=== PATIENT | male | born 1940 | race Caucasian/White ===

== ENCOUNTER 2018-05-01 07:27 | Outpatient (CLI) | payer MEDICARE | END 2018-05-01 07:28 | disposition home or self-care (01) | LOC: BICMRI 07:27 | PROVIDERS: ATTEND Nurse Practitioner Family | DX: M48.062 Spinal stenosis, lumbar region with neurogenic claudication (principal); M47.896 Other spondylosis, lumbar region; M51.26 Other intervertebral disc displacement, lumbar region | CPT/HCPCS: 72148 ==

== ENCOUNTER 2021-07-07 06:48 | Outpatient (CLI) | payer MEDICARE | END 2021-07-07 06:49 | disposition home or self-care (01) | LOC: BICMRI 06:48 | PROVIDERS: ATTEND Internal Medicine | DX: F89 Unspecified disorder of psychological development (principal) | CPT/HCPCS: 70551 ==

== ENCOUNTER 2023-02-17 14:55 | Outpatient (CLI) | payer MEDICARE | END 2023-02-17 14:56 | disposition home or self-care (01) | LOC: BICRAD 14:55 | PROVIDERS: ATTEND Internal Medicine Cardiovascular Disease | DX: R06.00 Dyspnea, unspecified (principal); R06.02 Shortness of breath | CPT/HCPCS: 71046 ==

== ENCOUNTER 2024-03-15 11:44 | Outpatient (CLI) | payer MEDICARE | END 2024-03-15 11:45 | disposition home or self-care (01) | LOC: BICRAD 11:44 | PROVIDERS: ATTEND Internal Medicine Cardiovascular Disease | DX: R06.02 Shortness of breath (principal) | CPT/HCPCS: 71046 ==

== ENCOUNTER 2024-08-21 09:56 | Day surgery (SDC) | payer MEDICARE ==
[2024-08-20 10:11] VITALS: BMI 37.0
[~2024-08-21 09:56] MED LIST: EPINEPHrine 0.3 MG in Ophthalmic Irrigation Solution 500 ML IRR SCH
[2024-08-21] MEDS ORDERED: fentaNYL 50 mcg/mL 1 mL Vial ONE (11:11)
[2024-08-21] MEDS ORDERED: Lidocaine 1% PF 5 ML VIAL ONE ×2 (11:11→12:02)
[2024-08-21] MEDS ORDERED: PROPOFOL 20 ML ONE (11:11)
[2024-08-21] MEDS ORDERED: Midazolam HCl 2 mg/2 ml Vial ONE (11:11)
[2024-08-21] MEDS ORDERED: Cyclopentolate 1% Opth Drop 2 ML BOT ONE (11:13)
[2024-08-21] MEDS ORDERED: PHENYLephrine 2.5% Ophth Soln 15 ml Bottle ONE (11:13)
[2024-08-21] MEDS ORDERED: Triamcinolone 40 MG/ML VIAL ONE (12:02)
[2024-08-21] MEDS ORDERED: Lidocaine 4% PF 5 ML AMP ONE (12:02)
[2024-08-21] MEDS ORDERED: Ondansetron PF 4 MG/2 ML Vial ONE (12:02)
[2024-08-21] MEDS ORDERED: CEFAZOLIN 1 GM VIAL ONE (12:02)
[2024-08-21] MEDS ORDERED: Bupivacaine 0.75% 10 ML VIAL ONE (12:02)
[2024-08-21] MEDS ORDERED: Maxitrol 0.1% Opth Oint 3.5 GM TUBE ONE (12:02)
== END 2024-08-21 13:55 | disposition home or self-care (01) ==
LOC: SDC 09:56
PROVIDERS: ATTEND Ophthalmology Retina Specialist
PROC: 08T53ZZ Resection of Left Vitreous, Percutaneous Approach (ICD-10-PCS; principal; 2024-08-21)
PROC: 08NF3ZZ Release Left Retina, Percutaneous Approach (ICD-10-PCS; 2024-08-21)
DX: H33.42 Traction detachment of retina, left eye (principal); Z91.040 Latex allergy status; Z88.1 Allergy status to other antibiotic agents; Z91.041 Radiographic dye allergy status; Z79.899 Other long term (current) drug therapy
CPT/HCPCS: 67041; C1814; J0171; J2250; J2405; J2704; J3010; J0690; J3301; J3490

== ENCOUNTER 2025-08-10 16:22 | Inpatient (IN) | payer MEDICARE ==
[~2025-08-10 16:22] MED LIST changes: -EPINEPHrine 0.3 MG in Ophthalmic Irrigation Solution 500 ML IRR SCH; +Iopamidol 370 76% 100 ML VIAL ONE
[2025-08-10 17:45] LABS: #Basophils 0.03 10x3/uL (0.0-0.2); #Eosinophils 0.49 10x3/uL (0.0-0.7); #Monocytes 1.13 10x3/uL (0.11-0.59); #Neutrophils 3.97 10x3/uL (1.40-6.50); %Basophils 0.5 % (0.0-1.0); %Eosinophils 7.6 % (0.0-10.0); %Lymphocytes 12.8 % (21.0-51.0); %Monocytes 17.5 % (0.0-10.0); %Neutrophils 61.4 % (42.0-75.0); Hematocrit 37.5 % (42.0-52.0); Hemoglobin 12.3 g/dL (14.0-18.0); Mean Corpuscular Hemoglobin 29.8 pg (27.0-31.0); Mean Corpuscular Volume 90.8 fL (78.0-98.0); Platelet Count 129 10x3/uL (130-400); Red Blood Cell (RBC) Count 4.13 mill/uL (4.70-6.10); White Blood Cell (WBC) Count 6.46 10x3/uL (4.8-10.8)
[2025-08-10 17:59] LABS: ALT (SGPT) 11 U/L (Less than 45); AST (SGOT) 21 U/L (11-34); Albumin 3.8 g/dL (3.1-4.5); Alkaline Phosphatase 66 U/L (40-110); Anion Gap 13 mmol/L (10-20); BUN (Urea Nitrogen) 20 mg/dL (8.4-25.7); Bilirubin, Total 0.9 mg/dL (0.3-1.2); Calc. Creatinine Clearance 0 mL/min (70-130); Calcium 9.1 mg/dL (7.8-10.44); Carbon Dioxide 28 mmol/L (23-31); Chloride 98 mmol/L (98-107); Globulin 3.1 g/dL (2.4-3.5); Glucose 93 mg/dL (83-110); Potassium 4.1 mmol/L (3.5-5.1); Sodium 135 mmol/L (136-145)
[2025-08-10] MEDS ORDERED: Famotidine/PF 20 mg/2ml Vial ONE (18:35)
[2025-08-10] MEDS ORDERED: diphenhydrAMINE 50 MG/ML VIAL ONE (18:35)
[2025-08-10 20:20] LABS: Bacteria/HPF None Seen HPF (None Seen); CAUTI Indications for Culture Fever or rigors; Glucose, Urine (Dipstick) Normal (Negative); Leukocyte Negative Leu/uL (Negative); Protein, Urine (Dipstick) Negative (Neg-Trace); Specific Gravity, Urine 1.017 (1.002-1.036); WBC/HPF None Seen HPF (0-3)
[2025-08-10 20:23] LABS: Urine Culture Reflex No No
[2025-08-10] MEDS ORDERED: Ondansetron PF 4 MG/2 ML Vial IVP PRN (21:26)
[2025-08-10] MEDS ORDERED: Guaifenesin DM 100-10/5 ML UDCUP PO PRN (21:26)
[2025-08-10 23:56] VITALS: BMI 29.2
[2025-08-11 04:45] LABS: #Basophils Less than 0.03 10x3/uL (0.0-0.2); #Eosinophils Less than 0.03 10x3/uL (0.0-0.7); #Monocytes 0.25 10x3/uL (0.11-0.59); #Neutrophils 3.34 10x3/uL (1.40-6.50); %Basophils 0.2 % (0.0-1.0); %Eosinophils 0.0 % (0.0-10.0); %Lymphocytes 15.2 % (21.0-51.0); %Monocytes 5.9 % (0.0-10.0); %Neutrophils 78.2 % (42.0-75.0); Hematocrit 40.1 % (42.0-52.0); Hemoglobin 12.9 g/dL (14.0-18.0); Mean Corpuscular Hemoglobin 29.0 pg (27.0-31.0); Mean Corpuscular Volume 90.1 fL (78.0-98.0); Platelet Count 156 10x3/uL (130-400); Red Blood Cell (RBC) Count 4.45 mill/uL (4.70-6.10); White Blood Cell (WBC) Count 4.27 10x3/uL (4.8-10.8)
[2025-08-11 05:14] LABS: Anion Gap 14 mmol/L (10-20); BUN (Urea Nitrogen) 18 mg/dL (8.4-25.7); Calc. Creatinine Clearance 96 mL/min (70-130); Calcium 9.3 mg/dL (7.8-10.44); Carbon Dioxide 24 mmol/L (23-31); Chloride 101 mmol/L (98-107); Glucose 128 mg/dL (83-110); Potassium 4.2 mmol/L (3.5-5.1); Sodium 135 mmol/L (136-145)
[2025-08-11] MEDS: Enoxaparin 40 MG (0.4 mL) SYRINGE SC SCH (08:30)
[2025-08-11] MEDS: Pantoprazole 40 MG DR.TAB PO SCH (08:30)
[2025-08-11] MEDS: Gabapentin 400 MG CAP PO SCH ×2 (08:31→20:19)
[2025-08-11] MEDS: Aspirin 81 mg Enteric Coated Tablet PO SCH (08:31)
[2025-08-11] MEDS: Metoprolol Succinate XL 25 MG ER.TAB PO SCH (08:31)
[2025-08-11] MEDS: Dexamethasone 4 MG TAB PO SCH (12:25)
[2025-08-11] MEDS: Azithromycin 250 MG TAB PO SCH (12:25)
[2025-08-11] MEDS: Melatonin 3 MG TAB PO SCH (20:19)
[2025-08-11] MEDS: Finasteride 5 MG TAB PO SCH (20:19)
[2025-08-11] MEDS: Rosuvastatin 20 MG TAB PO SCH (20:19)
[2025-08-11] MEDS: Acetaminophen 325 MG TAB PO PRN (20:22)
[2025-08-12 04:48] LABS: #Basophils Less than 0.03 10x3/uL (0.0-0.2); #Eosinophils Less than 0.03 10x3/uL (0.0-0.7); #Monocytes 0.71 10x3/uL (0.11-0.59); #Neutrophils 5.91 10x3/uL (1.40-6.50); %Basophils 0.1 % (0.0-1.0); %Eosinophils 0.1 % (0.0-10.0); %Lymphocytes 12.5 % (21.0-51.0); %Monocytes 9.3 % (0.0-10.0); %Neutrophils 77.7 % (42.0-75.0); Hematocrit 37.3 % (42.0-52.0); Hemoglobin 12.2 g/dL (14.0-18.0); Mean Corpuscular Hemoglobin 29.3 pg (27.0-31.0); Mean Corpuscular Volume 89.7 fL (78.0-98.0); Platelet Count 161 10x3/uL (130-400); Red Blood Cell (RBC) Count 4.16 mill/uL (4.70-6.10); White Blood Cell (WBC) Count 7.61 10x3/uL (4.8-10.8)
[2025-08-12 05:20] LABS: ALT (SGPT) 13 U/L (Less than 45); AST (SGOT) 23 U/L (11-34); Albumin 3.5 g/dL (3.1-4.5); Alkaline Phosphatase 58 U/L (40-110); Anion Gap 12 mmol/L (10-20); BUN (Urea Nitrogen) 20 mg/dL (8.4-25.7); Bilirubin, Total 0.8 mg/dL (0.3-1.2); Calc. Creatinine Clearance 103 mL/min (70-130); Calcium 8.8 mg/dL (7.8-10.44); Carbon Dioxide 26 mmol/L (23-31); Chloride 102 mmol/L (98-107); Globulin 3.1 g/dL (2.4-3.5); Glucose 114 mg/dL (83-110); Magnesium 1.9 mg/dL (1.6-2.6); Potassium 4.3 mmol/L (3.5-5.1); Sodium 136 mmol/L (136-145)
[2025-08-12] MEDS: Dexamethasone 4 MG TAB PO SCH (08:58)
[2025-08-12] MEDS: Azithromycin 250 MG TAB PO SCH (08:59)
[2025-08-12 12:05] VITALS: BP 138/74; TEMP 97.6
== END 2025-08-12 13:50 | disposition home or self-care (01) | DRG 177 ==
LOC: ERS 16:22 → OBSVTOIN 20:58 → T4-A 20:58
PROVIDERS: ADMIT Internal Medicine; ATTEND Internal Medicine
DX: U07.1 COVID-19 (principal); J96.01 Acute respiratory failure with hypoxia; K85.90 Acute pancreatitis without necrosis or infection, unspecified; Z88.8 Allergy status to other drugs, medicaments and biological substances; Z91.040 Latex allergy status; I10 Essential (primary) hypertension; E78.5 Hyperlipidemia, unspecified; N40.0 Benign prostatic hyperplasia without lower urinary tract symptoms; K21.9 Gastro-esophageal reflux disease without esophagitis; I25.10 Atherosclerotic heart disease of native coronary artery without angina pectoris; Z98.890 Other specified postprocedural states; Z95.1 Presence of aortocoronary bypass graft; Z95.0 Presence of cardiac pacemaker; Z79.899 Other long term (current) drug therapy
CPT/HCPCS: 36415; 71275; 80048; 80053; 81001; 83605; 83615; 83735; 83880; 84484; 85025; 86141; 87040; 87086; 93005; 96372; 96374; 96375; G0378; J1200; J1308; J1650; J2919; J8540; Q9967